=== PATIENT | female | born 1985 | race African-American/Black ===

== ENCOUNTER 2017-07-05 09:48 | Inpatient (IN) | payer OTHER ==
[~2017-07-05] VITALS: Ht 167.6 cm; Wt 93.6 kg
[2017-07-05] VITALS (13 sets, daily range): BP systolic 99–123; BP diastolic 55–81
[2017-07-05] MEDS ORDERED: PRENATAL TABLE1 EAC3 PO (10:14)
[2017-07-05] MEDS ORDERED: IRON325 M1 PO (10:15)
[2017-07-05 12:28] LABS: EOSINOPHIL (%) 0.3 % (0-5); HEMATOCRIT 36.9 % (36.0-46.0); IMMATURE GRANULOCYTE (%) 0.8 % (0.0-0.7); IMMATURE GRANULOCYTE COUNT 0.1 K/uL; INSTRUMENT ABS NEUTROPHIL CT 4.3 K/uL; LYMPHOCYTE COUNT 1.5 K/uL (1.0-2.8); MCH 33.9 PG (29.0-34.0); MCHC 35.2 G/DL (30.0-36.0); MCV 96.3 FL (83-99); MEAN PLAT.VOLUME 12.1 uM^3 (9.5-12.4); MONOCYTE COUNT 0.5 K/uL (0-0.8); NEUTROPHIL (%) 67.7 % (45-76); NEUTROPHIL COUNT 4.3 K/uL (1.8-6.4); PLATELET COUNT 130 K/uL (156-360); RBC DIS.WIDTH-CV 13.9 % (11.8-14.6); RBC DIS.WIDTH-SD 48.9 % (39-53); RED BLOOD COUNT 3.83 M/uL (3.80-5.20); WHITE BLOOD COUNT 6.4 K/uL (4.1-10.2)
[2017-07-06 07:33] LABS: EOSINOPHIL (%) 0.4 % (0-5); HEMATOCRIT 35.2 % (36.0-46.0); IMMATURE GRANULOCYTE (%) 0.8 % (0.0-0.7); IMMATURE GRANULOCYTE COUNT 0.1 K/uL; INSTRUMENT ABS NEUTROPHIL CT 6.6 K/uL; LYMPHOCYTE COUNT 1.5 K/uL (1.0-2.8); MCH 32.9 PG (29.0-34.0); MCHC 34.4 G/DL (30.0-36.0); MCV 95.7 FL (83-99); MEAN PLAT.VOLUME 12.8 uM^3 (9.5-12.4); MONOCYTE (%) 7.9 % (3-12); MONOCYTE COUNT 0.7 K/uL (0-0.8); NEUTROPHIL (%) 73.7 % (45-76); NEUTROPHIL COUNT 6.6 K/uL (1.8-6.4); PLATELET COUNT 122 K/uL (156-360); RBC DIS.WIDTH-CV 13.7 % (11.8-14.6); RBC DIS.WIDTH-SD 47.9 % (39-53); RED BLOOD COUNT 3.68 M/uL (3.80-5.20)
[2017-07-06 07:45] VITALS: BP 92/52
[2017-07-06 15:47] VITALS: BP 101/58
[2017-07-06 22:58] VITALS: BP 107/64
[2017-07-07] MEDS ORDERED: Tylenol Extra Streng PO (07:26)
[2017-07-07] MEDS ORDERED: IBUPROFEN800 MG PO (07:26)
[2017-07-07 07:29] VITALS: BP 94/64
[2017-07-07] MEDS ORDERED: PUMP IN STYLE1 EACH MC (12:22)
== END 2017-07-07 12:19 | disposition home or self-care (01) | DRG 775 ==
LOC: LDRP-OP 09:48 → 2WEST 09:49 → LDRP-OP 07-29 15:51
PROVIDERS: Advanced Practice Midwife
DX: O77.0 Labor and delivery complicated by meconium in amniotic fluid (principal); O99.02 Anemia complicating childbirth; D57.3 Sickle-cell trait; O26.03 Excessive weight gain in pregnancy, third trimester; Z3A.40 40 weeks gestation of pregnancy; Z37.0 Single live birth
CPT/HCPCS: 85025; J0595